=== PATIENT | male | born 1980 | race Caucasian/White ===

== ENCOUNTER 2016-11-05 11:23 | Emergency (ER) | payer MEDICAID, OTHER ==
[~2016-11-05] VITALS: Ht 190.5 cm; Wt 148.8 kg
[~2016-11-05 11:23] MED LIST: AMLODIPINE BESY10 M1; ASPIR 8181 M1 PO; ASPIRIN81 M2; ATORVASTATIN CA20 MG; ATORVASTATIN CA20 MG PO; BACTRIM; KEFLEX; LOSARTAN HCTZ; LOSARTAN POTASS50 MG PO; METOPROLOL TART50 M1; NIACIN500 M2; NIFEDIPINE60 M1 PO; TOPROL XL50 MG PO; [UNRECOGNIZED DRUG - OTHER] PO
[2016-11-05 11:32] VITALS: BP 156/126
--- NOTE | 2016-11-05 11:41 | NUR ---
Patient ambulated to bed 7 with family. RN evaluating patient at bedside.
--- NOTE | 2016-11-05 11:45 | NUR ---
PATIENT PRESENTS TO ED WITH c/o tightness type chest pain non radiating, unprovoked x 4 hrs ago---n/v and headache denies cough hx---htn, hyperlipidemia, sciatic pain, bulging disc rx---non compliant htn meds, tramadol . DENIES DIARRHEA; SKIN IS PINK/WARM/DRY; AAOX4 WITH EVEN AND STEADY GAIT; LUNGS CLEAR BL; HR EVEN AND REGULAR; PT DENIES ANY FEVER, CP, SOB, OR COUGH AT THIS TIME; PATIENT STATES PAIN OF 7/10 AT THIS TIME; VSS; PATIENT POSITIONED FOR COMFORT; HOB ELEVATED; BEDRAILS UP X2; BED DOWN. ER MD MADE AWARE OF PT STATUS.
--- NOTE | 2016-11-05 12:03 | NUR ---
Dr. Jean evaluating patient at bedside.
[2016-11-05] MEDS ORDERED: diphenhydrAMINE 50 MG/ML VIAL IVP ONE (12:10)
[2016-11-05] MEDS ORDERED: DEXAMETHASONE 10 MG/ML VIAL IVP ONE (12:10)
[2016-11-05] MEDS ORDERED: METOCLOPRAMIDE 10 MG/2 ML INJ VIAL IVP ONE (12:10)
--- NOTE | 2016-11-05 12:29 | NUR ---
AAO PT TAKEN OFF THE UNIT VIA GURNEY BY MARIA E MERCHANT AND MARIA E LEE FOR CT OF THE HEAD
[2016-11-05] MEDS ORDERED: KETOROLAC 30 MG/ML VIAL IVP ONE (13:35)
[2016-11-05 14:17] VITALS: BP 149/101
--- NOTE | 2016-11-05 14:17 | NUR ---
Patient discharged with v/s stable. Written and verbal after care instructions given and explained. Patient alert, oriented and verbalized understanding of instructions. Ambulatory with steady gait. All questions addressed prior to discharge. ID band removed. Patient advised to follow up with PMD. Rx of HYDROCHLOROTHIAZIDE, ZOFRAN, MOTRIN given. Patient educated on indication of medication including possible reaction and side effects. Opportunity to ask questions provided and answered.
== END 2016-11-05 14:17 | disposition home or self-care (01) ==
LOC: MED 11:23
DX: R51 Headache (principal); R11.2 Nausea with vomiting, unspecified; R07.89 Other chest pain; I10 Essential (primary) hypertension; J45.909 Unspecified asthma, uncomplicated; E78.00 Pure hypercholesterolemia, unspecified; Z88.0 Allergy status to penicillin; Z91.040 Latex allergy status; Z79.82 Long term (current) use of aspirin; Z79.899 Other long term (current) drug therapy
CPT/HCPCS: 36415; 70450; 71010; 80053; 84484; 85025; 93005; 96374; 96375; 99285; J1100; J1200; J1885; J2765

== ENCOUNTER 2018-01-04 19:47 | Emergency (ER) | payer MEDICAID ==
[~2018-01-04] VITALS: Ht 193 cm; Wt 153.9 kg
[~2018-01-04 19:47] MED LIST changes: +AMLO10TA3; -AMLODIPINE BESY10 M1; +ASPI-1271; +ASPI81EC98 PO; -ASPIR 8181 M1 PO; -ASPIRIN81 M2; +ATOR20TA40; +ATOR20TA40 PO; -ATORVASTATIN CA20 MG; -ATORVASTATIN CA20 MG PO; -BACTRIM; -KEFLEX; -LOSARTAN POTASS50 MG PO; +METO50TA21; -METOPROLOL TART50 M1; +NIAC-34 PO; -NIACIN500 M2; -NIFEDIPINE60 M1 PO; -TOPROL XL50 MG PO; +[UNRECOGNIZED DRUG - CODE]; -[UNRECOGNIZED DRUG - OTHER] PO
[2018-01-04 19:52] VITALS: BP 164/114
--- NOTE | 2018-01-04 19:57 | NUR ---
pt ambulated to bed 11
--- NOTE | 2018-01-04 20:11 | NUR ---
37 YO M BIB W/ C/O CHEST PAIN 10/16 THAT IS STABBING, SHARP, AND HEAVY AND NON-RADIATING X 2DAYS. PT DENIES N/V AT THIS TIME, BUT REPORTS THAT HE DID VOMIT 1X YESTERDAY AFTERNOON. PT DENIES FEVER CHILLS. PT REPORTS THAT THE CHEST PAIN IS CENTRALLY LOCATED IN THE CHEST. REPORTS THAT HE WOKE UP AT 3AM GASPING FOR AIR AND FEELING A TIGHTNESS IN HIS CHEST. REPORTS THE SYMPTOMS WERE THE WORST YESTERDAY AND HAVE IMPROVED TODAY. PT REPORTS THAT WHEN HE BREATHES IN, IT FEELS THOUGH, "AIR FLOWS THROUGH THE RIGHT SIDE OF MY CHEST BUT NOT THE LEFT SIDE". LUNGS BILATERALLY CLEAR AT THIS TIME WITH EXCELLENT AIR FLOW THORUGHOUT BILATERAL LOBES. RR EVEN AND UNLABORED WITH SYMMETRICAL RISE AND FALL OF THE CHEST. PT AAOX4. SPEAKING IN FULL, CLEAR, AND COMPLETE SENTENCES. [facility] 15. CMS INTACT. ER MD MCMULLEN NOTIFIED. PT NEEDS MET. SAFETY PRECAUTIONS IN PLACE. WILL CONTINUE TO MONITOR.
[2018-01-04] MEDS ORDERED: MORPHINE SULFATE 2 MG/ML SYR IVP ONE (20:30)
[2018-01-04] MEDS ORDERED: ONDANSETRON 4 MG/2 ML VIAL IVP ONE (20:30)
[2018-01-04 21:04] LABS: BASOPHILS # (AUTO) 0.1 K/uL (0.00-0.22); BASOPHILS % (AUTO) 0.8 % (0.0-2.0); EOSINOPHILS # (AUTO) 0.2 K/uL (0-0.4); EOSINOPHILS % (AUTO) 2.2 % (0.0-4.0); HEMATOCRIT 42.1 % (36-52); HEMOGLOBIN 13.8 g/dL (12.0-18.0); LYMPHOCYTES # (AUTO) 4.2 K/uL (2.0-11.5); LYMPHOCYTES % (AUTO) 50.2 % (20.5-51.1); MEAN CORPUSCULAR HEMOGLOBIN 25 pg (27-31); MEAN CORPUSCULAR HGB CONC 33 g/dL (33-37); MEAN CORPUSCULAR VOLUME 76.5 fL (80-94); MONOCYTES # (AUTO) 0.5 K/uL (0.8-1.0); MONOCYTES % (AUTO) 6.3 % (1.7-9.3); NEUTROPHILS # (AUTO) 3.4 K/uL (1.8-7.7); NEUTROPHILS % (AUTO) 40.5 % (42.2-75.2); PLATELET COUNT (AUTO) 233 K/uL (140-450); RED CELL DISTRIBUTION WIDTH 14.7 % (11.6-13.7); WHITE BLOOD COUNT (AUTO) 8.4 K/uL (4.8-10.8)
--- NOTE | 2018-01-04 21:17 | NUR ---
PT RESTING COMFORTABLY IN [facility] AT THIS TIME WITH RR EVEN AND UNLABORED, LUNGS CLEAR AND VSS. PT NEEDS MET. SAFETY PRECAUTIONS IN PLACE. WILL CONTINUE TO MONITOR.
[2018-01-04 21:23] LABS: PROTHROMBIN TIME 10.1 secs (10.8-13.4)
[2018-01-04 21:32] LABS: ANION GAP 11.6 (8-16); CARBON DIOXIDE 28.8 mmol/L (21-32); POTASSIUM 3.4 mmol/L (3.5-5.1)
[2018-01-04 21:36] LABS: ALBUMIN 3.3 g/dL (3.4-5.0); TOTAL BILIRUBIN 0.3 mg/dL (0.0-1.0)
[2018-01-04 21:39] LABS: D-DIMER < 100 ng/ml (0-400)
[2018-01-05 00:01] VITALS: BP 141/92
== END 2018-01-05 00:01 | disposition home or self-care (01) ==
LOC: MED 19:47
DX: R07.89 Other chest pain (principal); I10 Essential (primary) hypertension; J45.909 Unspecified asthma, uncomplicated; Z88.0 Allergy status to penicillin; Z91.040 Latex allergy status; E78.00 Pure hypercholesterolemia, unspecified
CPT/HCPCS: 36415; 71045; 80053; 83880; 84484; 85025; 85379; 85610; 85730; 93005; 96374; 96375; 99285; J2270; J2405; Q0092

== ENCOUNTER 2019-06-22 11:48 | Emergency (ER) | payer MEDICAID ==
[~2019-06-22] VITALS: Ht 190.5 cm; Wt 149.7 kg
[2019-06-22 11:58] VITALS: BP 151/115
--- NOTE | 2019-06-22 12:00 | NUR ---
C/O NON RADIATING CHEST PAIN 8/10 AND SHARP STARTING AT 545 AM TODAY ACCOMPANIED BY SOB, N/V. O2 SAT RA VARIES FROM 90-95%, LUNG SOUNDS CAEBL. NO LABORED BREATHING OR ACCESSORY MUSCLE USE NOTED. SKIN IS WARM/DRY. PT ANSWERING QUESTIONS APPROPRIATELY, SPEAKING CLEAR & COMPLETE SENTENCES. PT DENIES RECENT DRUG/ETOH USE. PT STATES HE HAS A HX OF HTN BUT DOES NOT TAKE ANY MEDICATIONS. BED IN LOW POSITION, SIDE RAIL UP X1. AND SON ARE AT BEDSIDE. 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
--- NOTE | 2019-06-22 12:04 | NUR ---
W/C ASSISTED TO BED 11
--- NOTE | 2019-06-22 12:45 | NUR ---
ATTEMPTED TO DRAW LABS FROM IV START BUT WAS UNABLE TO. I WILL LET SUPERVISOR PERSONNEL CLERKS DRAW
[2019-06-22] MEDS ORDERED: MECLIZINE 25 MG TAB PO ONE (13:20)
--- NOTE | 2019-06-22 14:00 | NUR ---
TECH AT BEDSIDE TO TAKE PT TO CT VIA W/C
[2019-06-22] MEDS ORDERED: LISINOPRIL 20 MG TAB PO ONE (14:35)
[2019-06-22] MEDS ORDERED: LORazepam 2 MG/ML VIAL IVP ONE (14:45)
--- NOTE | 2019-06-22 14:59 | NUR ---
ASKED PHARMACY TO BRING PILL CUTTER.
[2019-06-22] MEDS ORDERED: CRUSHER, PILL MC ONE (15:21)
[2019-06-22 16:01] VITALS: BP 150/105
--- NOTE | 2019-06-22 16:01 | NUR ---
Patient discharged with v/s stable. Written and verbal after care instructions given and explained. Patient alert, oriented and verbalized understanding of instructions. Ambulatory with steady gait. All questions addressed prior to discharge. ID band removed. Patient advised to follow up with PMD. Rx of ativan & lisinopril given. Patient educated on indication of medication including possible reaction and side effects. Opportunity to ask questions provided and answered.
== END 2019-06-22 16:01 | disposition home or self-care (01) ==
LOC: MED 11:48
DX: R06.4 Hyperventilation (principal); F45.0 Somatization disorder; I10 Essential (primary) hypertension; J45.909 Unspecified asthma, uncomplicated; Z98.890 Other specified postprocedural states; Z88.0 Allergy status to penicillin; Z91.040 Latex allergy status
CPT/HCPCS: 70450; 93005; 96374; 99284; J2060; J8597